=== PATIENT | male | born 1990 | race Two or more races ===

== ENCOUNTER → 2019-04-27 | Emergency (ER) | payer OTHER ==
[~2019-04-27] VITALS: Ht 172.7 cm; Wt 75.7 kg
== END | disposition home or self-care (01) ==
LOC: ER 19:13
DX: S40.011A Contusion of right shoulder, initial encounter (principal); W18.39XA Other fall on same level, initial encounter; Y93.89 Activity, other specified; Y92.828 Other wilderness area as the place of occurrence of the external cause; Y99.8 Other external cause status